=== PATIENT | female | born 1940 | race Caucasian/White ===

== ENCOUNTER 2019-06-16 14:34 | Emergency (ER) | payer OTHER ==
[~2019-06-16] VITALS: Ht 162.5 cm; Wt 81.6 kg
[2019-06-16 15:44] LABS: BASO # 0.1 10*3/uL (0.0-0.1); BASO % 1.5 % (0.0-1.0); EOS # 0.7 10*3/uL (0.0-0.4); EOS % 9.2 % (1.0-4.0); HEMATOCRIT 47.6 % (37.0-47.0); HEMOGLOBIN 14.7 g/dl (12.0-16.0); LYMPH # 1.8 10*3/uL (1.3-4.4); LYMPH % 24.4 % (27.0-41.0); MEAN CELL VOLUME 85.6 fl (81.0-99.0); MEAN CORPUSCULAR HGB 26.4 pg (27.0-31.0); MEAN CORPUSCULAR HGB CONC 30.9 g/dl (33.0-37.0); MEAN PLATELET VOLUME 10.6 fl (9.6-12.3); MONO # 0.8 10*3/uL (0.1-1.0); MONO % 10.5 % (3.0-9.0); NEUT % 53.1 % (47.0-73.0); PLATELET COUNT AUTOMATED 258 10*3/uL (130-400); RED BLOOD COUNT 5.56 10*6/uL (4.10-5.10); RED CELL DISTRI WIDTH 13.7 % (0-14.5); WHITE BLOOD COUNT 7.5 10*3/uL (4.8-10.8)
[2019-06-16 16:00] LABS: ALBUMIN 3.2 gm/dl (3.1-4.5); ALKALINE PHOSPHATASE 155 U/L (45-117); BUN 15 mg/dl (7-24); CHLORIDE 112 mmol/L (98-107); CREATININE 0.73 mg/dL (0.55-1.02); POTASSIUM 4.1 mmol/L (3.5-5.1); SGOT/AST 13 IU/L (3-35); SGPT/ALT 21 U/L (12-78); SODIUM 144 mmol/L (136-145); TOTAL PROTEIN 6.7 gm/dL (6.4-8.2)
[2019-06-16] MEDS ORDERED: CEPHALEXIN500 M1 PO (17:27)
[2019-06-16] MEDS ORDERED: TESSALON PERLE100 M1 PO (17:27)
[2019-06-16] MEDS ORDERED: DICYCLOMINE HCL10 MG PO (17:27)
== END 2019-06-16 17:30 | disposition home or self-care (01) ==
LOC: ED 14:34
PROVIDERS: Nurse Practitioner Family
DX: N39.0 Urinary tract infection, site not specified (principal); J32.9 Chronic sinusitis, unspecified; R19.7 Diarrhea, unspecified

== ENCOUNTER 2019-10-28 20:46 | Observation (INO) | payer OTHER ==
[~2019-10-28] VITALS: Ht 162.6 cm; Wt 78.3 kg
[~2019-10-28 20:46] MED LIST: CEPHALEXIN500 M1 PO; DICYCLOMINE HCL10 MG PO; TESSALON PERLE100 M1 PO
[2019-10-28 20:50] VITALS: BP 166/81
[2019-10-28 21:10] LABS: BASO # 0.1 10*3/uL (0.0-0.1); BASO % 1.1 % (0.0-1.0); EOS % 0.1 % (1.0-4.0); HEMATOCRIT 46.8 % (37.0-47.0); LYMPH # 1.2 10*3/uL (1.3-4.4); LYMPH % 11.9 % (27.0-41.0); MEAN CELL VOLUME 79.1 fl (81.0-99.0); MEAN CORPUSCULAR HGB 25.7 pg (27.0-31.0); MEAN CORPUSCULAR HGB CONC 32.5 g/dl (33.0-37.0); MEAN PLATELET VOLUME 10.5 fl (9.6-12.3); MONO # 0.7 10*3/uL (0.1-1.0); MONO % 6.8 % (3.0-9.0); NEUT # 8.2 10*3/uL (2.3-7.9); NEUT % 79.7 % (47.0-73.0); PLATELET COUNT AUTOMATED 344 10*3/uL (130-400); RED BLOOD COUNT 5.92 10*6/uL (4.10-5.10); RED CELL DISTRI WIDTH 13.4 % (0-14.5); WHITE BLOOD COUNT 10.3 10*3/uL (4.8-10.8)
[2019-10-28 21:25] LABS: ALBUMIN 3.5 gm/dl (3.1-4.5); ALKALINE PHOSPHATASE 141 U/L (45-117); BUN 13 mg/dl (7-24); CHLORIDE 109 mmol/L (98-107); CREATININE 0.74 mg/dL (0.55-1.02); LIPASE 42 U/L (73-393); POTASSIUM 2.6 mmol/L (3.5-5.1); SGOT/AST 24 IU/L (3-35); SGPT/ALT 12 U/L (12-78); SODIUM 141 mmol/L (136-145); TOTAL PROTEIN 7.1 gm/dL (6.4-8.2)
[2019-10-29 00:44] LABS: CLARITY CLEAR (CLEAR); COLOR YELLOW (YELLOW); GLUCOSE NEGATIVE (NEGATIVE)
[2019-10-29 00:45] LABS: BILIRUBIN NEGATIVE (NEGATIVE); BLOOD 3+ (NEGATIVE); KETONE 2+ (NEGATIVE); LEUKO ESTERASE NEGATIVE (NEGATIVE); NITRITE NEGATIVE (NEGATIVE); SPECIFIC GRAVITY 1.015 (1.005-1.030); UROBILINOGEN 0.2 E.U./dl (0.2-1.0)
[2019-10-29 01:05] LABS: BACTERIA 1+; RBC 31-40 rbc/hpf (0-2)
[2019-10-29 01:47] VITALS: BP 152/82
--- NOTE | 2019-10-29 01:57 | NUR ---
[facility] FAXED TO [facility]TH FLOOR [facility]
--- NOTE | 2019-10-29 01:59 | NUR ---
PT IN CT THEN WILL BE TRANSPORTED TO FLOOR
[2019-10-29 02:40] VITALS: BP 160/68
--- NOTE | 2019-10-29 03:24 | NUR ---
PJ, [employer]IME [employer]ION PHONED AND QUESTIONED IF KDUR 40MEQ THAT WAS ORDERED AT 0135 WAS GIVEN IN ER. PJ STATES NO IT WAS NOT GIVEN. THIS NURSE WILL ADMINISTER LATE MED.
--- NOTE | 2019-10-29 03:26 | NUR ---
Time: 239 A 79 year old FEMALE admitted to 5E under services of BELA PETERSON DO. Pt. arrived via ambulance from ER. Chief complaint: N/V. LUZMA,ALISON Candelario
--- NOTE | 2019-10-29 04:01 | NUR ---
DR. TERRY NOTIFIED OF PT'S BP OF 160/68 AND UNABLE TO RECONCILE MED REC. MONITOR PT'S BP AND IF IT CONTINUES TO BE ELEVATED, CALL
[2019-10-29 07:24] LABS: BASO # 0.1 10*3/uL (0.0-0.1); BASO % 0.7 % (0.0-1.0); HEMATOCRIT 48.1 % (37.0-47.0); LYMPH # 1.1 10*3/uL (1.3-4.4); LYMPH % 9.1 % (27.0-41.0); MEAN CORPUSCULAR HGB 25.6 pg (27.0-31.0); MEAN CORPUSCULAR HGB CONC 30.8 g/dl (33.0-37.0); MEAN PLATELET VOLUME 11.1 fl (9.6-12.3); MONO # 0.9 10*3/uL (0.1-1.0); MONO % 7.6 % (3.0-9.0); NEUT % 82.2 % (47.0-73.0); PLATELET COUNT AUTOMATED 311 10*3/uL (130-400); RED BLOOD COUNT 5.79 10*6/uL (4.10-5.10); RED CELL DISTRI WIDTH 13.9 % (0-14.5); WHITE BLOOD COUNT 12.2 10*3/uL (4.8-10.8)
[2019-10-29 07:34] LABS: MEAN CELL VOLUME 83.1 fl (81.0-99.0)
--- NOTE | 2019-10-29 07:56 | NUR ---
PT UP TO BATHROOM WITH ASSISTANCE AT THIS TIME. GAIT STEADY. IV FLUIDS INFUSING. NO S/S OF DISTRESS NOTED. RESPIRATIONS UNLABORED ON ROOM AIR. CALL LIGHT IN REACH.
[2019-10-29 07:59] LABS: ALBUMIN 3.3 gm/dl (3.1-4.5); ALKALINE PHOSPHATASE 148 U/L (45-117); BUN 13 mg/dl (7-24); CHLORIDE 112 mmol/L (98-107); CHOLESTEROL 145 mg/dL (<200); CREATININE 0.89 mg/dL (0.55-1.02); HDL CHOLESTEROL 43 mg/dl (40-60); LDL CHOLESTEROL 87 mg/dL (9-159); POTASSIUM 3.3 mmol/L (3.5-5.1); SGOT/AST 53 IU/L (3-35); SGPT/ALT 15 U/L (12-78); SODIUM 143 mmol/L (136-145); TRIGLYCERIDES 73 mg/dl (<150); VLDL CHOLESTEROL 15 mg/dL (6-40)
--- NOTE | 2019-10-29 08:03 | NUR ---
24 HR chart check completed.
[2019-10-29 08:05] LABS: FREE T4 1.45 ng/dl (0.76-1.46)
[2019-10-29 08:47] LABS: VITAMIN D, 25-HYDROXY 20.3 ng/mL (30-100)
[2019-10-29] MEDS ORDERED: LISINOPRIL40 MG PO (08:58)
[2019-10-29] MEDS ORDERED: LEVOTHYROXINE100 MC1 PO (08:58)
[2019-10-29] MEDS ORDERED: TRAZODONE100 MG PO (08:59)
[2019-10-29] MEDS ORDERED: DULOXETINE HCL30 MG PO (08:59)
[2019-10-29] MEDS ORDERED: ATORVASTATIN CA10 M1 PO (09:00)
[2019-10-29] MEDS ORDERED: DONEPEZIL HYDROC5 MG PO (09:00)
[2019-10-29] MEDS ORDERED: TRAMADOL HCL50 MG PO (09:01)
[2019-10-29] MEDS ORDERED: PERCOCET 5-3251 EACH PO (09:01)
--- NOTE | 2019-10-29 09:13 | NUR ---
PT MED REC UPDATED VIA PHONE CALL WITH DAUGHTER JOAO.
[2019-10-29 10:08] VITALS: BP 134/72
[2019-10-29 12:00] VITALS: BP 112/89
[2019-10-29] MEDS ORDERED: ZOFRAN4 MG PO (14:13)
[2019-10-29] MEDS ORDERED: K-TAB20 MEQ PO (14:15)
--- NOTE | 2019-10-29 14:42 | NUR ---
DISCHARGE SUMMARY REVIEWED WITH PT DAUGHTER JOAO ON THE PHONE. PT DAUGHTER IS NOTIFIED OF [facility], PHARMACY THAT WILL HAVE MEDICATIONS, BMP ON SATURDAY, AND DR APPOINTMENT SCHEDULED FOR SATURDAY. WILL REVIEW DISCHARGE INSTRUCITONS WITH PATIENT.
--- NOTE | 2019-10-29 15:45 | NUR ---
Discharge instructions reviewed with patient/family. Patient receptive and verbalizes understanding. Follow-up care arranged. Written instructions given to patient/family. SMITA HOUSER
--- NOTE | 2019-10-29 15:50 | NUR ---
PT ASSISTED OFF OF FLOOR VIA W/C AT THIS TIME FOR RIDE THAT IS WAITING IN ED PARKING LOT.
== END 2019-10-29 17:10 | disposition home or self-care (01) ==
LOC: ED 20:46 → 5E 10-29 00:41 → EDHOLD 10-29 00:41 → 5E 10-29 01:34
PROVIDERS: Internal Medicine; Nurse Practitioner Family; ADMIT Internal Medicine
DX: R11.2 Nausea with vomiting, unspecified (principal); R19.7 Diarrhea, unspecified; E87.6 Hypokalemia; F32.9 Major depressive disorder, single episode, unspecified; E87.8 Other disorders of electrolyte and fluid balance, not elsewhere classified; E03.9 Hypothyroidism, unspecified; F03.90 Unspecified dementia, unspecified severity, without behavioral disturbance, psychotic disturbance, mood disturbance, and anxiety; D72.829 Elevated white blood cell count, unspecified; R74.0 Nonspecific elevation of levels of transaminase and lactic acid dehydrogenase [LDH]; E53.8 Deficiency of other specified B group vitamins; E66.3 Overweight; R73.9 Hyperglycemia, unspecified

== ENCOUNTER 2020-05-03 13:37 | Inpatient (IN) | payer OTHER ==
[~2020-05-03] VITALS: Ht 162.5 cm; Wt 62.9 kg
[~2020-05-03 13:37] MED LIST changes: +ATORVASTATIN CA10 M1 PO; +DONEPEZIL HYDROC5 MG PO; +DULOXETINE HCL30 MG PO; +K-TAB20 MEQ PO; +LEVOTHYROXINE100 MC1 PO; +LISINOPRIL40 MG PO; +PERCOCET 5-3251 EACH PO; +TRAMADOL HCL50 MG PO; +TRAZODONE100 MG PO; +ZOFRAN4 MG PO
[2020-05-03 13:40] VITALS: BP 90/50
[2020-05-03 14:06] LABS: BASO % 0.6 % (0.0-1.0); EOS % 0.2 % (1.0-4.0); HEMATOCRIT 51.9 % (37.0-47.0); LYMPH # 1.1 10*3/uL (1.3-4.4); LYMPH % 22.7 % (27.0-41.0); MEAN CELL VOLUME 86.8 fl (81.0-99.0); MEAN CORPUSCULAR HGB 26.1 pg (27.0-31.0); MEAN CORPUSCULAR HGB CONC 30.1 g/dl (33.0-37.0); MEAN PLATELET VOLUME 12.2 fl (9.6-12.3); MONO # 0.6 10*3/uL (0.1-1.0); MONO % 11.6 % (3.0-9.0); NEUT % 63.4 % (47.0-73.0); PLATELET COUNT AUTOMATED 158 10*3/uL (130-400); RED BLOOD COUNT 5.98 10*6/uL (4.10-5.10); RED CELL DISTRI WIDTH 15.3 % (0-14.5); WHITE BLOOD COUNT 4.8 10*3/uL (4.8-10.8)
[2020-05-03 14:22] LABS: ACT PARTIAL THROMBO TIME 27.8 SECONDS (20.0-32.1)
[2020-05-03 14:27] LABS: ALBUMIN 3.1 gm/dl (3.1-4.5); ALKALINE PHOSPHATASE 111 U/L (45-117); BUN 37 mg/dl (7-24); CHLORIDE 116 mmol/L (98-107); CREATININE 1.69 mg/dL (0.55-1.02); POTASSIUM 4.9 mmol/L (3.5-5.1); SGOT/AST 29 IU/L (3-35); SGPT/ALT 19 U/L (12-78); SODIUM 142 mmol/L (136-145); TOTAL PROTEIN 6.4 gm/dL (6.4-8.2)
[2020-05-03 14:34] LABS: TROPONIN I < 0.015 ng/ml (<0.045)
[2020-05-03 16:07] VITALS: BP 92/64
[2020-05-03 17:36] VITALS: BP 108/52
[2020-05-03 17:59] VITALS: BP 102/56
[2020-05-03] MEDS ORDERED: ZESTRIL20 MG PO (18:30)
[2020-05-03] MEDS ORDERED: HYDROCHLOROTH12.5 M3 PO (18:31)
[2020-05-03] MEDS ORDERED: TRAZODONE100 MG PO (18:33)
[2020-05-03 18:38] VITALS: BP 134/75
[2020-05-03] MEDS ORDERED: LISINOPRIL40 MG PO (18:46)
[2020-05-03] MEDS ORDERED: LISINOPRIL20 MG PO (18:50)
[2020-05-03] MEDS ORDERED: HYDROCHLOROTH12.5 M2 PO (18:50)
[2020-05-03] MEDS ORDERED: POTASSIUM CHLO20 ME4 PO (18:51)
[2020-05-03 20:00] VITALS: BP 114/69
[2020-05-04] VITALS: BP 134/61
[2020-05-04 06:36] LABS: BASO % 0.4 % (0.0-1.0); EOS % 0.9 % (1.0-4.0); HEMATOCRIT 43.4 % (37.0-47.0); LYMPH # 1.6 10*3/uL (1.3-4.4); MEAN CORPUSCULAR HGB 26.2 pg (27.0-31.0); MEAN CORPUSCULAR HGB CONC 31.6 g/dl (33.0-37.0); MEAN PLATELET VOLUME 12.7 fl (9.6-12.3); MONO # 0.6 10*3/uL (0.1-1.0); MONO % 12.1 % (3.0-9.0); NEUT # 2.3 10*3/uL (2.3-7.9); NEUT % 49.9 % (47.0-73.0); PLATELET COUNT AUTOMATED 139 10*3/uL (130-400); RED BLOOD COUNT 5.23 10*6/uL (4.10-5.10); WHITE BLOOD COUNT 4.5 10*3/uL (4.8-10.8)
[2020-05-04 06:48] LABS: BUN 32 mg/dl (7-24); CHLORIDE 114 mmol/L (98-107); CREATININE 0.87 mg/dL (0.55-1.02); POTASSIUM 4.1 mmol/L (3.5-5.1); SODIUM 141 mmol/L (136-145)
[2020-05-04 08:00] VITALS: BP 95/54
[2020-05-04 12:00] VITALS: BP 119/56
[2020-05-04] MEDS ORDERED: LISINOPRIL20 MG PO (13:19)
[2020-05-04] MEDS ORDERED: VITAMIN D350 MC2 PO (13:19)
== END 2020-05-04 15:30 | disposition home or self-care (01) | DRG 177 ==
LOC: ED 13:37 → 4E 16:41 → EDHOLD 16:41 → 4E 17:33
PROVIDERS: Emergency Medicine; Student in an Organized Health Care Education/Training Program; ADMIT Student in an Organized Health Care Education/Training Program; ATTEND Student in an Organized Health Care Education/Training Program
DX: U07.1 COVID-19 (principal); N17.0 Acute kidney failure with tubular necrosis; E44.0 Moderate protein-calorie malnutrition; F33.1 Major depressive disorder, recurrent, moderate; D72.810 Lymphocytopenia; E78.5 Hyperlipidemia, unspecified; I10 Essential (primary) hypertension; I95.89 Other hypotension; E86.0 Dehydration; E87.8 Other disorders of electrolyte and fluid balance, not elsewhere classified; R73.9 Hyperglycemia, unspecified; E55.9 Vitamin D deficiency, unspecified; E53.8 Deficiency of other specified B group vitamins; E03.9 Hypothyroidism, unspecified; F03.90 Unspecified dementia, unspecified severity, without behavioral disturbance, psychotic disturbance, mood disturbance, and anxiety; Z90.49 Acquired absence of other specified parts of digestive tract; Z90.710 Acquired absence of both cervix and uterus; Z79.899 Other long term (current) drug therapy; Z68.23 Body mass index [BMI] 23.0-23.9, adult